=== PATIENT | female | born 1990 | race Caucasian/White ===

== ENCOUNTER 2022-07-14 00:08 | Inpatient (IN) ==
[2022-07-14] MEDS ORDERED: OXYTOCIN/LR 20 UNIT/1,000 ML BAG IV ONE ×3 (00:51→23:25)
[2022-07-14] MEDS ORDERED: TRANEXAMIC ACID 1,000 MG in SODIUM CHLORIDE 0.9% 100 ML IV PRN (00:51)
[2022-07-14] MEDS ORDERED: METHYLERGONOVINE 0.2 MG/1 ML AMP IM PRN (00:51)
[2022-07-14] MEDS ORDERED: BUTORPHANOL 1 MG/ML VIAL IV PRN (00:51)
[2022-07-14] MEDS ORDERED: OXYTOCIN/LR 20 UNIT/1,000 ML BAG IV PRN (00:51)
[2022-07-14] MEDS ORDERED: CARBOPROST TROMETHAMINE 250 MCG/ML AMP IM PRN (00:51)
[2022-07-14] MEDS ORDERED: BUTORPHANOL 2 MG/ML VIAL IV PRN (00:51)
[2022-07-14] MEDS ORDERED: miSOPROStoL 200 MCG TABLET RECTAL PRN (00:51)
[2022-07-14] MEDS ORDERED: ONDANSETRON 4 MG/2 ML VIAL IV PRN (00:51)
[2022-07-14 01:26] LABS: Basophils % 0.3 % (0.0-0.8); Eosinophils # 0.2 10*3/uL (0.0-0.87); Eosinophils % 1.6 % (0.00-10.9); Hematocrit 38.1 VOL% (35.7-47.0); Hemoglobin 12.7 GM/DL (12.0-16.0); Immature Granulocytes % 1.3 %; Immature Granulocytes Absolute 0.12 #; Lymphocytes # 2.4 10*3/uL (1.4-4.0); Lymphocytes % 25.3 % (21.3-54.2); Mean Corpuscular HGB Conc 33.3 GM/DL (32-36); Mean Platelet Volume 10.4 FL (9.6-12.0); Monocytes # 0.6 10*3/uL (0.11-0.8); Neutrophils % 65.5 % (38.7-73.9); Platelet Count 231 T/CUMM (130-400); Red Blood Count 4.33 MC/CUMM (3.8-5.5); White Blood Count 9.6 T/CUMM (4-12)
[2022-07-14] MEDS ORDERED: MAGNESIUM HYDROXIDE SUSP 30 ML UDCUP PO PRN (02:30)
[2022-07-14] MEDS: LACTATED RINGERS 1,000 ML IV PRN ×3 (05:35→14:40)
[2022-07-14] MEDS ORDERED: CITRIC ACID/SODIUM CITRATE 30 ML UDCUP PO ONE (09:07)
[2022-07-14] MEDS ORDERED: FAMOTIDINE 20 MG/2 ML VIAL IV ONE (09:07)
[2022-07-14] MEDS ORDERED: fentaNYL 2 MCG/ROPIV 0.2% EPID 100 ML EPIDURAL SCH (09:30)
[2022-07-14] MEDS: ePHEDrine 50 MG/ML VIAL IV PRN ×3 (10:27→10:49)
[2022-07-14 11:49] LABS: Mucus,Urine Occasional /LPF (Occasional); RBC,Urine 1 /HPF (0-4); Squamous Epithelial Cell,Urine Occasional /HPF (0-10); Urine Appearance Clear (Clear); Urine Color Yellow (Yellow); Urine Specific Gravity 1.015 (1.001-1.035)
[2022-07-14 11:50] LABS: Bilirubin,Urine Negative (Negative); Blood, Urine Negative (Negative); Glucose,Urine (UA) Negative (Negative); Ketones,Urine Negative (Negative); Nitrite,Urine Negative (Negative); Protein,Urine Trace mg/dL (Negative); Urine Urobilinogen 0.2 eU/dL (<2.0)
[2022-07-14] MEDS: diphenhydrAMINE 50 MG/1 ML VIAL IV PRN ×2 (13:54→21:44)
[2022-07-14 14:47] LABS: RPR Confirm - Less than 1 yr REACTIVE (Nonreactive)
[2022-07-14 15:28] LABS: RPR Confirm - Less than 1 yr REACTIVE (Nonreactive)
[2022-07-14] MEDS ORDERED: miSOPROStoL 200 MCG TABLET ONE (17:54)
[2022-07-14] MEDS ORDERED: TRANEXAMIC ACID 1,000 MG/10 ML VIAL ONE (17:54)
[2022-07-14] MEDS ORDERED: SODIUM CHLORIDE 0.9% 0 ML IV ONE (17:54)
[2022-07-14] MEDS ORDERED: CARBOPROST TROMETHAMINE 250 MCG/ML AMP IM ONE (17:55)
[2022-07-14] MEDS ORDERED: METHYLERGONOVINE 0.2 MG/1 ML AMP ONE (17:55)
[2022-07-14] MEDS ORDERED: diphenhydrAMINE 50 MG/1 ML VIAL IM ONE (18:17)
[2022-07-14 21:15] LABS: Cord Venous Blood HCO3 21.9 MMOL/L; Cord Venous Blood PCO2 40.3 MMHG; Cord Venous Blood PO2 30.4
[2022-07-14] MEDS ORDERED: DIPH/TET/ACEL PERT BOOSTER VACCINE 0.5 ML VIAL IM ONE (23:25)
[2022-07-14] MEDS ORDERED: ACETAMINOPHEN 325 MG TABLET PO PRN (23:25)
[2022-07-14] MEDS ORDERED: WITCH HAZEL PADS 100/JAR TOP PRN (23:25)
[2022-07-14] MEDS ORDERED: oxyCODONE/ACETAMINOPHEN 5-325 MG TABLET PO PRN ×2 (23:25)
[2022-07-14] MEDS ORDERED: BISACODYL 10 MG SUPP RECTAL PRN (23:25)
[2022-07-14] MEDS ORDERED: BENZOCAINE 20%/MENTHOL 0.5% SPRAY 56 GM CAN TOP PRN (23:25)
[2022-07-14] MEDS ORDERED: RHO(D) IMMUNE GLOBULIN 300 MCG SYRINGE IM ONE (23:25)
[2022-07-14] MEDS ORDERED: MEASLES/MUMPS/RUBELLA VACCINE 0.5 ML VIAL SUBCUT ONE (23:25)
[2022-07-14] MEDS ORDERED: LANOLIN 50% CREAM 0.3 OZ TUBE TOP PRN (23:25)
[2022-07-14] MEDS ORDERED: HYDROCORTISONE 2.5% RECTAL CREAM 30 GM TUBE TOP PRN (23:25)
[2022-07-14] MEDS: IBUPROFEN 800 MG TABLET PO PRN (23:45)
[2022-07-15 01:02] LABS: Barbiturates Screen,Urine Negative (Negative); Benzodiazepines Screen,Urine Negative (Negative); Cannabinoid Screen,Urine Negative (Negative); Opiate Screen,Urine Negative (Negative); Phencyclidine Screen,Urine Negative (Negative)
[2022-07-15] MEDS: IBUPROFEN 800 MG TABLET PO PRN ×3 (05:28→19:08)
[2022-07-15 05:33] LABS: Basophils % 0.2 % (0.0-0.8); Eosinophils % 0.2 % (0.00-10.9); Hematocrit 31.4 VOL% (35.7-47.0); Hemoglobin 10.4 GM/DL (12.0-16.0); Immature Granulocytes % 0.7 %; Immature Granulocytes Absolute 0.13 #; Lymphocytes # 2.7 10*3/uL (1.4-4.0); Lymphocytes % 14.7 % (21.3-54.2); Mean Corpuscular HGB Conc 33.1 GM/DL (32-36); Mean Corpuscular Volume 89.2 FL (87-102); Mean Platelet Volume 10.2 FL (9.6-12.0); Monocytes # 1.2 10*3/uL (0.11-0.8); Monocytes % 6.3 % (1.7-12.7); Neutrophils % 77.9 % (38.7-73.9); Platelet Count 267 T/CUMM (130-400); Red Blood Count 3.52 MC/CUMM (3.8-5.5); White Blood Count 18.6 T/CUMM (4-12)
[2022-07-15 06:13] LABS: Anisocytosis 1+; Platelet Estimate Normal
[2022-07-15] MEDS: DOCUSATE SODIUM 100 MG CAPSULE PO SCH ×2 (08:35→21:16)
[2022-07-16] MEDS: IBUPROFEN 800 MG TABLET PO PRN ×2 (03:28→10:55)
[2022-07-16 07:15] VITALS: BP 104/59
[2022-07-16] MEDS: DOCUSATE SODIUM 100 MG CAPSULE PO SCH (07:37)
[2022-07-16] MEDS ORDERED: INFLUENZA VIRUS VACCINE 0.5 ML SYRINGE IM ONE (08:00)
== END 2022-07-16 12:05 | disposition home or self-care (01) | DRG 560 ==
LOC: N.LD 00:08 → N.OB 23:23
PROVIDERS: ADMIT Obstetrics & Gynecology; ATTEND Obstetrics & Gynecology